=== PATIENT | female | born 1960 | race Asian ===

== ENCOUNTER 2018-09-27 20:58 | Emergency (ER) | payer SELFPAY ==
[~2018-09-27] VITALS: Ht 165.1 cm; Wt 60.3 kg
[2018-09-27 21:29] VITALS: BP 132/55; Ht 165.1 cm; Wt 60.3 kg
== END 2018-09-27 22:08 | disposition home or self-care (01) ==
LOC: ED 20:58
DX: S51.011A Laceration without foreign body of right elbow, initial encounter (principal); S80.211A Abrasion, right knee, initial encounter; W01.0XXA Fall on same level from slipping, tripping and stumbling without subsequent striking against object, initial encounter; Y93.89 Activity, other specified; Y92.89 Other specified places as the place of occurrence of the external cause; Y99.8 Other external cause status